=== PATIENT | female | born 1955 | race Caucasian/White ===

== ENCOUNTER → 2018-07-23 | Outpatient (CLI) | payer OTHER ==
--- NOTE | 2018-07-23 17:22 | RAD ---
CT abdomen pelvis without intravenous contrast History: Right flank pain. Hematuria. Vomiting for days. Comparison: None. Technique: CT of the abdomen and pelvis was performed without intravenous or oral contrast. Exposure: One or more of the following individualized dose reduction techniques were utilized for this examination: 1. Automated exposure control 2. Adjustment of the mA and/or kV according to patient size 3. Use of iterative reconstruction technique Findings: Evaluation of solid organs is limited by lack of intravenous contrast. Evaluation of enteric structures may be limited by lack of oral contrast. Images of lower chest demonstrate dependent consolidation, favored to be atelectasis. Minimal pericardial effusion is seen. Moderate-severe fatty liver disease is seen. Spleen, pancreas, and bilateral adrenal glands are unremarkable. Bilateral kidneys and ureters are free stone or obstruction. Uterus and adnexa have unremarkable CT appearance. No bowel obstruction or inflammation is identified. Appendix is not seen, compatible with provided history of appendicitis. 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 Markedly abnormal gallbladder seen. Gallbladder is distended gallbladder wall thickening and there is pericholecystic inflammatory change. At least one gallstone is seen. Findings are compatible with acute cholecystitis. Portacaval lymph node measures 0.9 cm in short axis. No free air is identified. Impression: 1. CT is positive for acute cholecystitis. 2. No evidence of urinary stone. Electronically signed by: Lv Paredes MD (07/23/2018 5:19 PM) [id number]
== END | disposition home or self-care (01) ==
LOC: CT 16:24
PROVIDERS: ATTEND Specialist
DX: K81.0 Acute cholecystitis (principal); K82.8 Other specified diseases of gallbladder; I31.3 Pericardial effusion (noninflammatory); R59.0 Localized enlarged lymph nodes
CPT/HCPCS: 74176